=== PATIENT | male | born 1975 | race Caucasian/White ===

== ENCOUNTER 2021-01-12 08:08 | Day surgery (SDC) | payer BC ==
[~2021-01-12 08:08] MED LIST: Lactated Ringers 1,000 ML IV SCH; Lidocaine 2% 5 ML SDV ONE; Midazolam 1 MG/ML 2 ML SDV ONE; Propofol 200 MG/20 ML SDV ONE; fentaNYL 100 MCG/2 ML SDV ONE
--- NOTE | 2021-01-12 08:46 | PCM.PREANE ---
Preanesthetic Assessment - Anesthesia/Transfusion/Family Hx Anesthesia History: Prior Anesthesia Without Reaction Family History of Anesthesia Reaction: No Transfusion History: No Prior Transfusion(s) - Review of Systems General: No Symptoms Pulmonary: No Symptoms Cardiovascular: No Symptoms Gastrointestinal: No Symptoms Neurological: No Symptoms Other: Reports: None - Physical Assessment NPO Status Date: 01/12/21 NPO Status Time: 00:01 Height: 5 ft 10 in Weight: 229 lb ASA Class: 2 Mental Status: Alert & Oriented x3 Airway Class: Mallampati = 2 Dentition: Reports: Normal Dentition ROM/Head Extension: Full Lungs: Clear to Auscultation, Normal Respiratory Effort Cardiovascular: Regular Rate, Regular Rhythm - Allergies Allergies/Adverse Reactions: Allergies Allergy/AdvReac Type Severity Reaction Status Date / Time No Known Allergies Allergy Verified 01/06/21 07:52 - Anesthesia Plan Pre-Op Medication Ordered: None - Acknowledgements Anesthesia Type Planned: General Anesthesia Pt an Appropriate Candidate for the Planned Anesthesia: Yes Alternatives and Risks of Anesthesia Discussed w Pt/Guardian: Yes Pt/Guardian Understands and Agrees with Anesthesia Plan: Yes Additional Comments: NPO TOB QUIT 3 MONTHS AGO ETOH QUIT 3 MONTHS AGO NO CV PROBLEMS OBESITY BMI 33 COVID POS DECEMBER 30, 2020 HE HAD URI SX A MONTH PRIOR TO THAT NO PULMONARY SX NOW PAR NO QUESTIONS PreAnesthesia Questionnaire HEENT History: Reports: None Cardiovascular History: Reports: None Respiratory History: Reports: None Gastrointestinal History: Reports: GERD Genitourinary History: Reports: None Musculoskeletal History: Reports: Fracture Other Musculoskeletal History: hx fx left knee Neurological History: Reports: None Psychiatric History: Reports: None Endocrine/Metabolic History: Reports: Obesity/BMI 30+ Hematologic History: Reports: None Immunologic History: Reports: None Oncologic (Cancer) History: Reports: None Dermatologic History: Reports: Psoriasis - Past Surgical History Head Surgeries/Procedures: Reports: None HEENT Surgical History: Reports: Tonsillectomy Cardiovascular Surgical History: Reports: None Respiratory Surgical History: Reports: None GI Surgical History: Reports: None Male Surgical History: Reports: None Endocrine Surgical History: Reports: None Neurological Surgical History: Reports: None Other Musculoskeletal Surgeries/Procedures:: hx left knee surgery Oncologic Surgical History: Reports: None Dermatological Surgical History: Reports: None - SUBSTANCE USE Tobacco Use Status *Q: Former Tobacco User Tobacco Use Within Last Twelve Months: Cigarettes - HOME MEDS Home Medications: Home Meds Calcium Carbonate [Tums] 1 tab.chew CHEW ASDIRECTED PRN 01/06/21 [History] Hydrocortisone/Aloe Vera [Cortizone-10 1% Creme] 1 applic TOP ASDIRECTED PRN 01/06/21 [History] - CURRENT (IN HOUSE) MEDS Current Meds: Current Medications Lactated Ringer's (Ringers, Lactated) 1,000 mls @ 125 mls/hr IV ASDIRECTED ROMA Discontinued Medications Fentanyl (Fentanyl 100 Mcg/2 Ml Sdv) Confirm Administered Dose 100 mcg .ROUTE .STK-MED ONE Stop: 01/12/21 06:51 Lidocaine (Lidocaine 2% 5 Ml Sdv) Confirm Administered Dose 5 ml .ROUTE .STK-MED ONE Stop: 01/12/21 06:52 Midazolam HCl (Midazolam 1 Mg/Ml 2 Ml Sdv) Confirm Administered Dose 2 mg .ROUTE .STK-MED ONE Stop: 01/12/21 06:50 Propofol (Propofol 200 Mg/20 Ml Sdv) Confirm Administered Dose 200 mg .ROUTE .STK-MED ONE Stop: 01/12/21 06:50
[2021-01-12] MEDS ORDERED: Propofol 200 MG/20 ML SDV ONE (09:28)
--- NOTE | 2021-01-12 10:58 | PCM.OPNOTE ---
- General Post-Op/Procedure Note Date of Surgery/Procedure: 01/12/21 Operative Procedure(s): EGD with biopsies. Colonoscopy with biopsies Findings: Duodenitis in the lst part minimal gastritis Irregular GE junction White lesion on the ICV Irrigation of the rectal mucosa Dictation Number [id number] Pre Op Diagnosis: Issues with constipation and loose stools. Post-Op Diagnosis: Duodenitis in the lst part. minimal gastritis. Irregular GE junction. White lesion on the ICV. Irrigation of the rectal mucosa Primary Surgeon: Geoffrey Schmitz Pathology: EGD and Colon biopsies. Complications: None Condition: Good Free Text/Narrative:: Intake & Output 01/11/21 01/12/21 01/12/21 22:59 06:59 14:59 Intake Total 850 Balance 850
--- NOTE | 2021-01-12 11:16 | PCM.POSTAN ---
POST ANESTHESIA ASSESSMENT - MENTAL STATUS Mental Status: Alert (no anesthetic problems), Oriented - VITAL SIGNS Vital Signs: Last Vital Signs Temp 96.6 F L 01/12/21 10:28 Pulse 55 L 01/12/21 10:45 Resp 15 01/12/21 10:45 BP 104/59 L 01/12/21 10:45 Pulse Ox 98 01/12/21 10:45 - RESPIRATORY Respiratory Status: Respiratory Rate WNL, Airway Patent, O2 Saturation Stable - CARDIOVASCULAR CV Status: Pulse Rate WNL, Blood Pressure Stable - GASTROINTESTINAL GI Status: No Symptoms - POST OP HYDRATION Hydration Status: Adequate & Stable
--- NOTE | 2021-01-12 11:16 | PCM48HPAN ---
Post Anesthesia Note - EVALUATION WITHIN 48HRS OF ANESTHETIC Vital Signs in Normal Range: Yes Patient Participated in Evaluation: Yes Respiratory Function Stable: Yes Airway Patent: Yes Cardiovascular Function Stable: Yes Hydration Status Stable: Yes Pain Control Satisfactory: Yes Nausea and Vomiting Control Satisfactory: Yes Mental Status Recovered: Yes Vital Signs: Last Vital Signs Temp 96.6 F L 01/12/21 10:28 Pulse 55 L 01/12/21 10:45 Resp 15 01/12/21 10:45 BP 104/59 L 01/12/21 10:45 Pulse Ox 98 01/12/21 10:45
--- NOTE | 2021-01-12 15:48 | OR ---
SURGEON: BENJAMIN SULLIVAN MD DATE OF PROCEDURE: 01/12/2021 PREOPERATIVE DIAGNOSES: 1. Intermittent loose stools and constipation. 2. Rectal pressure. 3. Gastroesophageal reflux disease. POSTOPERATIVE DIAGNOSES: 1. Duodenitis in the first part of the duodenum. 2. Gastritis. 3. Irregular gastroesophageal junction with two less than 1 cm salmon-colored tongues at the gastroesophageal junction. 4. Flat whitish lesion at the ileocecal valve. 5. Some slight irritation of the rectal mucosa. PROCEDURE PERFORMED: 1. EGD with biopsy. 2. Colonoscopy with biopsies. EXTENT: Extent of colonoscopy was to the terminal ileum and cecum. Extent of the EGD was to the second part of the duodenum. LIMITATIONS: None. PRIMARY SURGEON: Benjamin Sullivan MD ANESTHESIA: With anesthesiologist. BOWEL PREP: Colonoscopy, was very good. REASON FOR PROCEDURE: The patient is a pleasant 45-year-old gentleman who says for the past 2 years he has had issues with loose stools and constipation. . He says he also has issues with popping sensation in the rectum. The patient also said he had issues with some bad heartburn and epigastric pain; however, the patient has cut out on alcohol, and for the past 4 months, he has not had these issues. PROCEDURE IN DETAIL: Physical exam was performed. Major risks and benefits associated with procedure were explained in detail to the patient. The patient verbalized understanding and is in agreement of the same. The patient was connected to the appropriate devices and IV was started. EKG, pulse oximetry, blood pressure, and capnography were monitored throughout the procedure. Continuous oxygen and sedation were provided by the anesthesiologist. Patient was placed in left lateral decubitus position. Sedation began. After adequate sedation was achieved, an upper endoscope was advanced under direct visualization without any difficulty in the upper GI tract. The anatomy and mucosa of the esophagus, GE junction, stomach, pylorus, and at least the second part of the duodenum were all inspected. Second part of the duodenum had normal mucosa, although in the first part of the duodenum, the patient did have slight irritation of some mild duodenitis. Several biopsies of this were taken. Scope was brought to the stomach. Both retro and antegrade views of the stomach were done. Some minimal gastritis, more kind in the antrum. Biopsy of the antrum and pylorus area were taken to check for H. pylori. Scope was brought to the GE junction. GE junction was approximately 37 cm from the incisors. GE junction was irregular. There were two less than 1 cm salmon-colored tongues. They were tongues that went up. One of the tongues did have some islands of normal mucosa in it. Did do several biopsies of these salmon-colored tongues, and then, some 4-quadrant biopsies at the GE junction. Scope was brought back into the stomach. Stomach was deinsufflated. Scope was brought through the esophagus. There was good hemostasis to the biopsy sites. Esophagus also appeared normal. Scope was brought all the way out and the procedure was terminated. Gloves and scopes were changed. Now, a rectal exam was done. No rectal masses or polyps felt. An Olympus colonoscope was inserted into the rectum and advanced under visualization to the level of the cecum. The cecum was identified by both visual and anatomic landmarks. Photographs were was taken of the cecal cap and ileocecal valve. In the posterior aspect of ileocecal valve, patient had a whitish lesion, potentially like fibrous material, potentially overlying the old healing ulcer. Did do biopsies of this. Terminal ileum was also intubated. Terminal ileum appeared normal. Did do biopsies within the terminal ileum. Scope was then slowly withdrawn in somewhat circular fashion looking at the color, texture, and integrity of the mucosa from the cecum to the anal canal. Mucosa appeared normal, but did do random biopsies throughout the colon. No polyps were seen, but in the rectum from the 15 cm jack, it appeared slightly more edematous and slightly more friable, and he also had little whitish plaques that could potentially just be irritation from the prep though. I did do biopsies here also. Scope was retroflexed in the rectum, scope was completely removed, and the procedure was terminated. ENDOSCOPIC DIAGNOSES: 1. Duodenitis in the first part of duodenum, some minimal gastritis, irregular gastroesophageal junction. 2. White lesion in the ileocecal valve. 3. A slight irritation of rectal mucosa. RECOMMENDATIONS: 1. Followup colonoscopy will depend on pathology. 2. The patient should follow up in the clinic to go over the pathology along with his EGD. 3. The patient should start omeprazole to help with his duodenitis. BIJAN / JOHNIE /[id number]
== END 2021-01-12 10:58 | disposition home or self-care (01) ==
LOC: MW.SDS 08:08
PROVIDERS: ATTEND Surgery
DX: K29.50 Unspecified chronic gastritis without bleeding (principal); U07.1 COVID-19; K63.3 Ulcer of intestine; K52.9 Noninfective gastroenteritis and colitis, unspecified; K29.80 Duodenitis without bleeding; E66.9 Obesity, unspecified; Z68.32 Body mass index [BMI] 32.0-32.9, adult; Z87.891 Personal history of nicotine dependence
CPT/HCPCS: 43239; 45380; 88305; 88312; J2250; J2704; J3010; J7120